=== PATIENT | male | born 1955 | race Caucasian/White ===

== ENCOUNTER 2019-06-10 21:27 | Observation (INO) ==
[2019-06-10] MEDS ORDERED: Ipratropium/Albuterol Neb 3 ML IH ONE (21:49)
[2019-06-10] MEDS ORDERED: MethylPREDNISolone 40 MG/ML VIAL IVP ONE (21:56)
[2019-06-10] MEDS: 0.9 % Sodium Chloride 1,000 ML IVC SCH (22:03)
[2019-06-10 22:34] LABS: Basophils % 0.4 %; Eosinophils # 0.1 K/mcL (0.0-0.6); Eosinophils % 0.8 %; Hematocrit 40.4 % (37.5-50.1); Immature Granulocytes % 0.5 % (0-4); Lymphocytes # 0.5 K/mcL (0.6-4.6); Mean Corpuscular HGB Conc 32.2 g/dL (31.6-35.5); Mean Corpuscular Hemoglobin 30.9 pg (28.0-33.3); Monocytes # 0.5 K/mcL (0.0-1.3); Monocytes % 6.7 %; Neutrophils # 6.2 K/mcL (1.6-8.9); Platelet Count 232 K/mcL (140-400); Red Blood Count 4.21 M/mcL (4.19-5.50); Red Cell Distribution Width 14.1 % (11.5-14.5); Segmented Neutrophils % 84.6 %; White Blood Count 7.3 K/mcL (4.3-11.1)
[2019-06-10 22:36] LABS: INR 1.2; Prothrombin Time 13.1 Seconds (9.4-12.1)
[2019-06-10] MEDS ORDERED: Isovue-370 500 ML BOTTLE IVP ONE (22:46)
[2019-06-10 22:55] LABS: Alanine Aminotransferase 204 Units/L (7-52); Albumin 3.4 g/dL (3.5-5.7); Albumin/Globulin Ratio 1.2 (1.1-2.2); Alkaline Phosphatase 75 Units/L (34-104); Aspartate Amino Transferase 120 Units/L (13-39); BUN/Creatinine Ratio 24 (6-26); Bilirubin,Direct 0.2 mg/dL (0.0-0.2); Bilirubin,Indirect 0.4 mg/dL (0.0-1.0); Bilirubin,Total 0.6 mg/dL (0.3-1.0); Blood Urea Nitrogen 27 mg/dL (8-23); Calcium 8.7 mg/dL (8.6-10.3); Carbon Dioxide 26 mEq/L (23-29); Chloride 105 mEq/L (98-107); Globulin 2.8 g/dL (2.4-3.5); Glucose 96 mg/dL (70-105); Osmolality,Calculated 289 (280-300); Potassium 4.1 mEq/L (3.5-5.1); Sodium 137 mEq/L (136-145); Total Protein 6.2 g/dL (6.4-8.9); Troponin I < 0.03 ng/mL (< 0.04); eGFR For African Americans > 60 (> 60); eGFR For Non-African Americans > 60 (> 60)
[2019-06-10] MEDS ORDERED: Azithromycin 500 MG in 0.9 % Sodium Chloride 250 ML IVPB ONE (23:36)
[2019-06-10] MEDS ORDERED: cefTRIAXone 1,000 MG in 0.9 % Sodium Chloride Mini Bag 100 ML IVPB ONE (23:36)
[2019-06-11] MEDS ORDERED: Naloxone 0.4 MG/ML INJ IVP PRN (02:19)
[2019-06-11 02:58] LABS: Basophils % 0.2 %; Hematocrit 38.2 % (37.5-50.1); Hemoglobin 12.5 g/dL (12.9-16.9); Immature Granulocytes % 0.6 % (0-4); Lymphocytes # 0.4 K/mcL (0.6-4.6); Lymphocytes % 6.5 %; Mean Corpuscular HGB Conc 32.7 g/dL (31.6-35.5); Mean Corpuscular Hemoglobin 31.3 pg (28.0-33.3); Mean Corpuscular Volume 95.5 fL (83.0-100.0); Mean Platelet Volume 9.3 fL (9.4-12.4); Monocytes # 0.1 K/mcL (0.0-1.3); Monocytes % 2.2 %; Neutrophils # 5.9 K/mcL (1.6-8.9); Platelet Count 243 K/mcL (140-400); Red Cell Distribution Width 13.9 % (11.5-14.5); Segmented Neutrophils % 90.5 %; White Blood Count 6.5 K/mcL (4.3-11.1)
[2019-06-11] MEDS ORDERED: Albuterol 2.5 MG/3 ML NEBULIZER IH PRN (03:03)
[2019-06-11 03:14] LABS: Alanine Aminotransferase 192 Units/L (7-52); Albumin 3.1 g/dL (3.5-5.7); Albumin/Globulin Ratio 1.2 (1.1-2.2); Alkaline Phosphatase 65 Units/L (34-104); Aspartate Amino Transferase 109 Units/L (13-39); BUN/Creatinine Ratio 25 (6-26); Bilirubin,Total 0.4 mg/dL (0.3-1.0); Blood Urea Nitrogen 24 mg/dL (8-23); Calcium 8.4 mg/dL (8.6-10.3); Carbon Dioxide 25 mEq/L (23-29); Chloride 104 mEq/L (98-107); Chol/HDL Ratio 2.8 (0-4.9); Cholesterol 100 mg/dL (< 200); Globulin 2.6 g/dL (2.4-3.5); Glucose 132 mg/dL (70-105); HDL Cholesterol 36 mg/dL (40-59); LDL Cholesterol,Calculated 55 mg/dL (0-99); Magnesium 1.7 mg/dL (1.6-2.6); Osmolality,Calculated 290 (280-300); Phosphorous 3.4 mg/dL (2.7-4.5); Potassium 4.5 mEq/L (3.5-5.1); Sodium 137 mEq/L (136-145); Total Protein 5.7 g/dL (6.4-8.9); Triglycerides 45 mg/dL (< 150); eGFR For African Americans > 60 (> 60); eGFR For Non-African Americans > 60 (> 60)
[2019-06-11] MEDS: Ipratropium/Albuterol Neb 3 ML IH SCH ×4 (04:18→22:15)
[2019-06-11 04:20] LABS: ABG Base Excess 2 mEq/L (-2 to 3); ABG HCO3 27 mEq/L (21-27); ABG Oxygen Saturation 97 % (95-98); ABG PCO2 44 mmHg (35-45); ABG PO2 94 mmHg (85-104); ABG TCO2 29 mEq/L (20-26)
[2019-06-11 05:02] LABS: Bilirubin,Urine Negative (Negative); Blood,Urine Negative (Negative); Clarity,Urine Clear (Clear); Color,Urine Yellow (Yellow); Glucose,Urine (UA) Normal (Normal); Ketones,Urine Negative (Negative); Leukocyte Esterase,Urine Negative (Negative); Nitrite,Urine Negative (Negative); Protein,Urine Negative (Neg-Trace); Specific Gravity,Urine > 1.030 (1.010-1.025)
[2019-06-11] MEDS: *HR* Heparin 5,000 UNIT/ML VIAL SQ SCH ×3 (06:03→21:22)
[2019-06-11] MEDS ORDERED: Azithromycin 250 MG TABLET PO SCH (09:00)
[2019-06-11] MEDS: predniSONE 20 MG TABLET PO SCH (09:01)
[2019-06-11] MEDS: Doxycycline 100 MG in 0.9 % Sodium Chloride Mini Bag 100 ML IVPB SCH ×2 (09:02→17:25)
[2019-06-11 10:19] LABS: Adenovirus Not Detected (Not Detect); Bordetella Pertussis Not Detected (Not Detect); Chlamydophila pneumoniae Not Detected (Not Detect); Coronavirus 229E Not Detected (Not Detect); Coronavirus HKU1 Not Detected (Not Detect); Coronavirus NL63 Not Detected (Not Detect); Coronavirus OC43 Not Detected (Not Detect); Human Metapneumovirus Not Detected (Not Detect); Human Rhinovirus/Enterovirus Not Detected (Not Detect); Influenza A Subtype 2009 H1 Not Detected (Not Detect); Influenza B Not Detected (Not Detect); Mycoplasma pneumoniae Not Detected (Not Detect); Parainfluenza Virus 1 Not Detected (Not Detect); Parainfluenza Virus 2 Not Detected (Not Detect); Parainfluenza Virus 3 Not Detected (Not Detect); Parainfluenza Virus 4 Not Detected (Not Detect); Respiratory Syncytial Virus Not Detected (Not Detect)
[2019-06-11] MEDS: 0.9 % Sodium Chloride 1,000 ML IVC SCH (11:50)
[2019-06-11 17:53] LABS: Estimated Average Glucose 114 mg/dl
[2019-06-12] MEDS: 0.9 % Sodium Chloride 1,000 ML IVC SCH (03:50)
[2019-06-12] MEDS: Ipratropium/Albuterol Neb 3 ML IH SCH ×2 (04:19→11:20)
[2019-06-12] MEDS: *HR* Heparin 5,000 UNIT/ML VIAL SQ SCH (06:17)
[2019-06-12] MEDS: Doxycycline 100 MG in 0.9 % Sodium Chloride Mini Bag 100 ML IVPB SCH (06:18)
[2019-06-12 06:28] LABS: Basophils % 0.4 %; Eosinophils % 0.4 %; Hematocrit 38.5 % (37.5-50.1); Hemoglobin 12.3 g/dL (12.9-16.9); Lymphocytes # 1.5 K/mcL (0.6-4.6); Lymphocytes % 19.8 %; Mean Corpuscular HGB Conc 31.9 g/dL (31.6-35.5); Mean Corpuscular Hemoglobin 30.5 pg (28.0-33.3); Mean Corpuscular Volume 95.5 fL (83.0-100.0); Monocytes # 0.7 K/mcL (0.0-1.3); Monocytes % 8.8 %; Neutrophils # 5.4 K/mcL (1.6-8.9); Platelet Count 243 K/mcL (140-400); Red Blood Count 4.03 M/mcL (4.19-5.50); Red Cell Distribution Width 13.9 % (11.5-14.5); Segmented Neutrophils % 69.6 %; White Blood Count 7.7 K/mcL (4.3-11.1)
[2019-06-12 06:51] LABS: Alanine Aminotransferase 135 Units/L (7-52); Albumin 2.8 g/dL (3.5-5.7); Albumin/Globulin Ratio 1.1 (1.1-2.2); Alkaline Phosphatase 64 Units/L (34-104); Aspartate Amino Transferase 59 Units/L (13-39); BUN/Creatinine Ratio 25 (6-26); Bilirubin,Total 0.4 mg/dL (0.3-1.0); Blood Urea Nitrogen 26 mg/dL (8-23); Calcium 8.4 mg/dL (8.6-10.3); Carbon Dioxide 29 mEq/L (23-29); Chloride 108 mEq/L (98-107); Globulin 2.6 g/dL (2.4-3.5); Glucose 93 mg/dL (70-105); Magnesium 1.8 mg/dL (1.6-2.6); Osmolality,Calculated 294 (280-300); Phosphorous 2.5 mg/dL (2.7-4.5); Potassium 4.3 mEq/L (3.5-5.1); Sodium 140 mEq/L (136-145); Total Protein 5.4 g/dL (6.4-8.9); eGFR For African Americans > 60 (> 60); eGFR For Non-African Americans > 60 (> 60)
[2019-06-12 08:13] VITALS: BP 132/76
[2019-06-12 08:41] LABS: Hepatitis B Surface Antigen Nonreactive (Nonreactive)
[2019-06-12] MEDS ORDERED: cefTRIAXone 1,000 MG in Water for inj. (sterile) 10 ML IVP SCH (09:00)
[2019-06-12 09:10] LABS: Hepatitis B Core IgM Nonreactive (Nonreactive)
[2019-06-12 09:11] LABS: Hepatitis A Antibody IgM Nonreactive (Nonreactive)
[2019-06-12] MEDS: predniSONE 20 MG TABLET PO SCH (09:44)
[2019-06-12 14:54] LABS: Hepatitis C Virus Antibody Reactive (Nonreactive)
== END 2019-06-12 12:02 | disposition home or self-care (01) ==
LOC: 3BNU 21:27 → EMEROOARM 21:27 → SUATTDRO 06-11 00:36 → 3BNU 06-11 01:07
PROVIDERS: ADMIT Family Medicine; ATTEND Internal Medicine